=== PATIENT | male | born 1990 | race Caucasian/White ===

== ENCOUNTER 2018-07-20 08:23 | Emergency (ER) | payer OTHER ==
[~2018-07-20] VITALS: Ht 188 cm; Wt 86.2 kg
[2018-07-20 08:33] VITALS: BP 153/86
[2018-07-20] MEDS ORDERED: CLIN300C8 PO (08:49)
--- NOTE | 2018-07-20 08:49 | PHYS DOC ---
Past History Past Medical History: No Pertinent History, Other Past Medical History Tinea versicolor, Vitiligo Past Surgical History: No Surgical History Smoking: Quit Less Than 1 Year Additional Smoking Information: CHEWING TOBACCO Alcohol Use: Heavy Drug Use: None Adult General Chief Complaint Chief Complaint: INSECT BITE HPI HPI Patient is a 27 year old male who presents with concerns for an area of redness, swelling and pain on his right posterior shoulder. He states that when he went to bed at 0130 last night, the lesion was not present. He woke up this morning in a hurry to get to work but did not note any pain when putting his shirt on. While at work, he began to notice a throbbing pain on his right posterior shoulder and became concern when he noticed redness, swelling and blister formation in that area. His employer directed him to come to the ED for further evaluation. Patient does note that he lives in a trailer home and has seen spiders at the residence. He denies system symptoms such as fever, difficulty b reathing, palpitations, nausea, vomiting or additional lesions/rashes. Review of Systems Review of Systems Constitutional: Denies fever or chills [] Eyes: Denies blurred vision or diplopia [] HENT: Denies nasal congestion or rhinorrhea [] Respiratory: Denies cough or shortness of breath [] Cardiovascular: Denies chest pain or palpitations [] GI: Denies abdominal pain, nausea, vomiting, or diarrhea [] : Denies dysuria or hematuria [] Musculoskeletal: Reports right shoulder pain and pain in his right 2nd finger from previous work injury. [] Integument: Reports redness, swelling and blister formation on skin overlying right posterior shoulder. [] Neurologic: Denies headache or dizziness [] Complete review of systems found to be within normal limits, except as document ed in this note. Current Medications Current Medications Current Medications Medications (Trade) Dose Ordered Sig/Latosha Start Time Stop Time Status Last Admin Dose Admin Clindamycin HCl (Cleocin) 300 mg 1X ONCE 07/20/18 08:45 07/20/18 08:46 UNV Ibuprofen (Motrin) 600 mg 1X ONCE 07/20/18 08:45 07/20/18 08:46 UNV Allergies Allergies Allergies Coded Allergies Type Severity Reaction Last Updated Verified No Known Drug Allergies 07/20/18 No Physical Exam Physical Exam Constitutional: Well developed, well nourished, no acute distress, non-toxic appearance. [] HENT: Normocephalic, atraumatic. [] Eyes: EOMI, conjunctiva normal, no discharge. [] Neck: Supple, nontender without lymphadenopathy [] Cardiovascular: Heart rate regular rhythm, no murmur [] Lungs & Thorax: Bilateral breath sounds clear to auscultation [] Abdomen: Soft and nontender [] Skin: Roughly 4 cm area of blanchable erythema with central blister of serous fluid accumulation, mild amount of induration near blister, possibly two puncture quintero in center of blister that are roughly 1 mm apart, area is exquisitely tender to palpation[] Extremities: Radial pulses intact b/l. Healing laceration over dorsal aspect of 2nd right middle phalanx[] Neurologic: Alert and oriented without focal deficits noted. [] Psychologic: Affect normal, judgement normal, mood normal. [] Current Patient Data Vital Signs Vital Signs Date Time Temp Pulse Resp B/P (MAP) Pulse Ox O2 Delivery O2 Flow Rate FiO2 07/20/18 08:33 98.4 69 16 100 Room Air EKG EKG [] Radiology/Procedures Radiology/Procedures [] Course & Med Decision Making Course & Med Decision Making Patient presents with area of painful blanchable erythema, mild induration, and serous blister formation overlying his right posterior shoulder that he noticed while at work this morning. No fluctuant lesion. He did not notice the lesion before bed or when getting ready to work and examination of the blister shows what appears to be puncture quintero concerning for insect bite, likely a spider. Pt deferred Rx for pain management as he will use OTC medication as needed. Will discharge home with Rx for antibiotic for prophylactic coverage. Wound dressing applied with antibiotic ointment. Area of erythema marked with pen. Patient instructed to return if erythema continues to progress, pain is uncontrolled, or if he begins to experience systemic symptoms such as fever, chills, palpitations. Patient stable for discharge with outpatient follow-up with PCP. Discussed findings and plan with patient, who acknowledge understanding and agreement. [] Dragon Disclaimer Dragon Disclaimer This electronic medical record was generated, in whole or in part, using a voice recognition dictation system. Departure Departure: Impression: Primary Impression: Insect bite Disposition: HOME, SELF-CARE Condition: STABLE Referrals: PCP,NO (PCP) Patient Instructions: Insect Bite, [id number] Additional Instructions: Do not soak your wound. You may shower. Clean wound daily with soap and water. Change dressing 2 times daily. Use over the counter antibiotic ointment with each dressing change. Use over the counter Tylenol and Ibuprofen for pain. Scripts Clindamycin Hcl (CLINDAMYCIN HCL) 300 Mg Capsule 1 CAP PO TID for infection for 7 Days, #21 CAP Prov: FLOYD CHEEMA DO 07/20/18 Problem Qualifiers Primary Impression: Insect bite Encounter type: initial encounter Site of insect bite: shoulder Laterality: right Qualified Codes: S40.261A - Insect bite (nonvenomous) of right shoulder, initial encounter; W57.XXXA - Bitten or stung by nonvenomous insect and other nonvenomous arthropods, initial encounter FLOYD CHEEMA DO July 20, 2018 08:49
[2018-07-20] MEDS ORDERED: NEOMY/BACITR/POLYMYXIN OINT PACKET. TP ONE (09:00)
[2018-07-20] MEDS ORDERED: CLINDAMYCIN HCL 150 MG CAPSULE PO ONE (09:00)
[2018-07-20] MEDS ORDERED: IBUPROFEN 600 MG TABLET. PO ONE (09:00)
== END 2018-07-20 09:07 | disposition home or self-care (01) ==
LOC: ER 08:23
DX: S40.261A Insect bite (nonvenomous) of right shoulder, initial encounter (principal); F17.220 Nicotine dependence, chewing tobacco, uncomplicated; F10.20 Alcohol dependence, uncomplicated; Y90.9 Presence of alcohol in blood, level not specified; W57.XXXA Bitten or stung by nonvenomous insect and other nonvenomous arthropods, initial encounter; Y93.89 Activity, other specified; Y92.89 Other specified places as the place of occurrence of the external cause; Y99.8 Other external cause status
CPT/HCPCS: 99283